=== PATIENT | male | born 1995 | race Caucasian/White ===

== ENCOUNTER 2022-02-11 08:59 | Outpatient (REF) | payer OTHER, SELFPAY | END 2022-02-11 09:00 | disposition home or self-care (01) | LOC: HO.BBR 08:59 | PROVIDERS: Visit Provider Physician Assistant Medical | DX: Z13.89 Encounter for screening for other disorder (principal) ==

== ENCOUNTER 2022-02-25 09:10 | Outpatient (REF) | payer OTHER, SELFPAY | END 2022-02-25 09:11 | disposition home or self-care (01) | LOC: HO.BBR 09:10 | PROVIDERS: Visit Provider Physician Assistant Medical | DX: Z13.89 Encounter for screening for other disorder (principal) ==

== ENCOUNTER 2022-03-11 09:14 | Outpatient (REF) | payer OTHER, SELFPAY | END 2022-03-11 09:15 | disposition home or self-care (01) | LOC: HO.BBR 09:14 | PROVIDERS: Visit Provider Physician Assistant Medical | DX: Z13.89 Encounter for screening for other disorder (principal) ==